=== PATIENT | female | born 2000 | race Caucasian/White ===

== ENCOUNTER 2018-11-16 08:06 | Inpatient (IN) | payer MEDICAID ==
[~2018-11-16] VITALS: Ht 160 cm; Wt 92.1 kg
[~2018-11-16 08:06] MED LIST: OXYTOCIN 20 UNITS/LR PREMIX 1,000 ML IV ONE
[2018-11-16] MEDS ORDERED: OXYTOCIN 10 UNITS/ML VIAL ONE (08:12)
[2018-11-16] MEDS ORDERED: METHYLERGONOVINE 0.2 MG/ML AMP IM PRN ×2 (08:15→08:50)
[2018-11-16] MEDS ORDERED: CARBOPROST 250 MCG/ML AMP IM PRN (08:15)
[2018-11-16] MEDS ORDERED: OXYTOCIN 10 UNITS/ML VIAL IM SCH (08:15)
[2018-11-16 08:36] VITALS: BP 118/86
[2018-11-16 08:43] LABS: BASOPHILS % (AUTO) 0.3 % (0.0-2.0); EOSINOPHILS % (AUTO) 0.4 % (0.0-4.0); LYMPHOCYTES # (AUTO) 1.6 K/uL (2.5-16.5); LYMPHOCYTES % (AUTO) 14.6 % (20.5-51.1); MEAN CORPUSCULAR HEMOGLOBIN 28 pg (27-31); MEAN CORPUSCULAR HGB CONC 33 g/dL (33-37); MEAN CORPUSCULAR VOLUME 84.6 fL (80-94); MONOCYTES # (AUTO) 0.4 K/uL (0.8-1.0); MONOCYTES % (AUTO) 3.5 % (1.7-9.3); NEUTROPHILS % (AUTO) 81.2 % (42.2-75.2); PLATELET COUNT (AUTO) 316 K/uL (140-450); RED BLOOD CELL COUNT(AUTO) 4.26 MIL/uL (4.20-5.40); RED CELL DISTRIBUTION WIDTH 16.5 % (11.6-13.7); WHITE BLOOD COUNT (AUTO) 11.1 K/uL (4.5-11.0)
[2018-11-16] MEDS ORDERED: BENZOCAINE/MENTHOL 20%-0.5% 60 GM CAN TP PRN (08:50)
[2018-11-16] MEDS ORDERED: MEASLES, MUMPS, AND RUBELLA 1 VIAL SQVAC PRN (08:50)
[2018-11-16] MEDS ORDERED: SODIUM PHOSPHATE 118 ML ENEM RC PRN (08:50)
[2018-11-16] MEDS ORDERED: TEMAZEPAM 15 MG CAP PO PRN (08:50)
--- NOTE | 2018-11-16 15:06 | NUR ---
PATIENT HAS BEEN SCREENED AND CATEGORIZED LOW NUTRITION RISK. PATIENT WILL BE SEEN WITHIN 7 DAYS OF ADMISSION. 11/22/[address]
[2018-11-16] MEDS ORDERED: DOCUSATE SOD/SENNA 50/8.6 MG 1 TAB PO SCH (21:00)
[2018-11-16] MEDS: IBUPROFEN 800 MG TAB PO PRN (21:05)
[2018-11-17 10:18] LABS: HEMATOCRIT 31.5 % (36-48); HEMOGLOBIN 10.5 g/dL (12.0-16.0)
[2018-11-17] MEDS: IBUPROFEN 800 MG TAB PO PRN (16:27)
[2018-11-18] MEDS: IBUPROFEN 800 MG TAB PO PRN (07:41)
== END 2018-11-18 15:25 | disposition home or self-care (01) | DRG 560 ==
LOC: MFCC 08:06 → EDBD 08:06 → MFCC 11:12
PROVIDERS: ADMIT Obstetrics & Gynecology; ATTEND Obstetrics & Gynecology
PROC: 10E0XZZ Delivery of Products of Conception, External Approach (ICD-10-PCS; principal; 2018-11-16)
DX: O80 Encounter for full-term uncomplicated delivery (principal); Z37.0 Single live birth; Z3A.38 38 weeks gestation of pregnancy
CPT/HCPCS: 36415; 85018; 85025; 86592; 86886; 86900; 86901; J2590; J7120

== ENCOUNTER 2019-10-13 14:19 | Emergency (ER) | payer MEDICAID, OTHER ==
[~2019-10-13] VITALS: Ht 160 cm; Wt 81.6 kg
[2019-10-13 14:32] VITALS: BP 116/46
--- NOTE | 2019-10-13 14:35 | NUR ---
URINE CUP HANDED TO PT FOR SAMPLE
--- NOTE | 2019-10-13 14:38 | NUR ---
AMBULATED TO BED 12
--- NOTE | 2019-10-13 14:45 | NUR ---
PT C/O INTERMITTENT PINCHING TYPE PAIN TO MID SUPRAPUBIC AREA/UMBILICAL REGION WITH SPOTTING TYPE VAGINAL BLEEDING X 5 DAYS. ALSO REPORTS INTERMITTENT LOWER BACK PAIN FOR 2 WEEKS AND HEMATURIA FOR 2 DAYS; ALSO NAUSEA AND LOSS OF APPETITE. DENIES INJURY OR URGENCY, FREQUENCY, BURNING SENSATION OF URINATION. DENIES FEVER, COUGH, RECENT TRAVEL OR SICK CONTACTS. NOT SEEN OB YET NO PRENETAL CARE. PATIENT STATES PAIN OF 3/10 AT THIS TIME; VSS; PATIENT POSITIONED FOR COMFORT; HOB ELEVATED; BEDRAILS UP X21; BED DOWN. ER MADE AWARE OF PT STATUS. Addendum: 10/13/19 at 1451 by MED A0, EDER UNKNOWN
[2019-10-13 15:34] LABS: BASOPHILS % (AUTO) 0.3 % (0.0-2.0); EOSINOPHILS # (AUTO) 0.1 K/uL (0-0.4); EOSINOPHILS % (AUTO) 1.8 % (0.0-4.0); HEMATOCRIT 33.7 % (36-48); HEMOGLOBIN 10.9 g/dL (12.0-16.0); LYMPHOCYTES # (AUTO) 2.2 K/uL (2.5-16.5); LYMPHOCYTES % (AUTO) 33.2 % (20.5-51.1); MEAN CORPUSCULAR HEMOGLOBIN 25 pg (27-31); MEAN CORPUSCULAR HGB CONC 33 g/dL (33-37); MEAN CORPUSCULAR VOLUME 76.8 fL (80-94); MONOCYTES # (AUTO) 0.4 K/uL (0.8-1.0); MONOCYTES % (AUTO) 6.4 % (1.7-9.3); NEUTROPHILS # (AUTO) 3.9 K/uL (1.8-7.7); NEUTROPHILS % (AUTO) 58.3 % (42.2-75.2); PLATELET COUNT (AUTO) 372 K/uL (140-450); RED BLOOD CELL COUNT(AUTO) 4.39 MIL/uL (4.20-5.40); RED CELL DISTRIBUTION WIDTH 16.7 % (11.6-13.7); WHITE BLOOD COUNT (AUTO) 6.7 K/uL (4.8-10.8)
[2019-10-13 15:40] LABS: APPEARANCE,URINE CLEAR (CLEAR); BILIRUBIN,URINE NEGATIVE (NEGATIVE); BLOOD, URINE TRACE-I (NEGATIVE); COLOR,URINE YELLOW (YELLOW); LEUKOCYTE ESTERASE ,URINE NEGATIVE (NEGATIVE); NITRITE, URINE POSITIVE (NEGATIVE); PH,URINE 6.5 (5.0-9.0); UGLUCOSE NEGATIVE (NEGATIVE)
--- NOTE | 2019-10-13 16:00 | NUR ---
PT IS RESTING IN THE BED.
[2019-10-13 16:01] LABS: RBC,URINE 0-5 /HPF (0-5); WBC,URINE NONE SEEN /HPF (0-5)
[2019-10-13] MEDS ORDERED: NITROFURANTOIN 100 MG CAP PO ONE (16:15)
--- NOTE | 2019-10-13 17:00 | NUR ---
PT AMBULATED TO BATHROOM WITH STEADY GAIT.
[2019-10-13 17:51] VITALS: BP 128/65
== END 2019-10-13 17:52 | disposition home or self-care (01) ==
LOC: MED 14:19
DX: O20.0 Threatened abortion (principal); O23.41 Unspecified infection of urinary tract in pregnancy, first trimester; O99.011 Anemia complicating pregnancy, first trimester; Z3A.01 Less than 8 weeks gestation of pregnancy
CPT/HCPCS: 36415; 76817; 81001; 81025; 84702; 85025; 86900; 86901; 87086; 99284; Q0092

== ENCOUNTER 2019-10-16 10:45 | Emergency (ER) | payer OTHER ==
[~2019-10-16] VITALS: Ht 162.6 cm; Wt 85.3 kg
[2019-10-16 10:48] VITALS: BP 119/58
--- NOTE | 2019-10-16 10:55 | NUR ---
Patient ambulated to bed 12. RN evaluating patient at bedside.
--- NOTE | 2019-10-16 10:56 | NUR ---
Pt ambulated to restroom to provide urine sample
--- NOTE | 2019-10-16 11:15 | NUR ---
19 Y/O F C/C VAGINAL BLEEDING X 6 DAYS. PT FURTHER COMPLAINTS OF LOWER ABDONIMAL PAIN, CRAMPING, NONRADIATING, 02/09. BLEEDING HAS GOTTEN WORSE WITH BLOOD CLOTS BIG A "SMALL ROCK" PER PT. PT BEING USING TWO PADS/DAY. WAS SEEN IN [facility] PAST MONDAY FOR SAME C/C, GIVEN ABX, PT COMPLIANT WITH RX. PT ON THIRD WITH UNKNOWN DUE DATE, TWO PREVIOUS PREGNANCIES TWO CHILD ALIVE. PT NKA. NO RX. NO HX. NO SX. NO N/V/D. SIDE RAIL X1.
--- NOTE | 2019-10-16 11:20 | NUR ---
Ultrasound at bedside
[2019-10-16 11:23] LABS: BASOPHILS % (AUTO) 0.1 % (0.0-2.0); EOSINOPHILS # (AUTO) 0.1 K/uL (0-0.4); EOSINOPHILS % (AUTO) 1.9 % (0.0-4.0); HEMATOCRIT 35.6 % (36-48); HEMOGLOBIN 11.5 g/dL (12.0-16.0); LYMPHOCYTES # (AUTO) 2.2 K/uL (2.5-16.5); LYMPHOCYTES % (AUTO) 33.8 % (20.5-51.1); MEAN CORPUSCULAR HEMOGLOBIN 25 pg (27-31); MEAN CORPUSCULAR HGB CONC 32 g/dL (33-37); MEAN CORPUSCULAR VOLUME 76.8 fL (80-94); MONOCYTES # (AUTO) 0.4 K/uL (0.8-1.0); MONOCYTES % (AUTO) 6.4 % (1.7-9.3); NEUTROPHILS # (AUTO) 3.8 K/uL (1.8-7.7); NEUTROPHILS % (AUTO) 57.8 % (42.2-75.2); PLATELET COUNT (AUTO) 327 K/uL (140-450); RED BLOOD CELL COUNT(AUTO) 4.63 MIL/uL (4.20-5.40); RED CELL DISTRIBUTION WIDTH 16.6 % (11.6-13.7); WHITE BLOOD COUNT (AUTO) 6.6 K/uL (4.8-10.8)
[2019-10-16 13:16] VITALS: BP 122/58
--- NOTE | 2019-10-16 13:16 | NUR ---
Patient discharged with v/s stable. Written and verbal after care instructions given and explained. Patient verbalized understanding. Ambulatory with steady gait. All questions addressed prior to discharge. Advised to follow up with PMD or MD [place].
== END 2019-10-16 13:16 | disposition home or self-care (01) ==
LOC: MED 10:45
DX: O20.0 Threatened abortion (principal); Z3A.01 Less than 8 weeks gestation of pregnancy
CPT/HCPCS: 36415; 76817; 84702; 85025; 99284; Q0092

== ENCOUNTER 2020-05-02 23:40 | Emergency (ER) | payer OTHER ==
[~2020-05-02] VITALS: Ht 160 cm; Wt 84.8 kg
[2020-05-02 23:48] VITALS: BP 137/78
--- NOTE | 2020-05-02 23:53 | NUR ---
PT AMBULATED TO BED 02 STEADY GAIT
--- NOTE | 2020-05-02 23:55 | NUR ---
19 Y/O FEMALE C/O L EYE PAIN X1 MONTH. PT STATES 5/10 ITCHING PAIN. PT STATES IT "GETS RED WHEN I ITCH IT" AND "FEELS SWOLLEN". SKIN WARM AND DRY. SELLING NOTED TO LT EYE, NO REDNESS NOTED. DENIES ANY DISCHARGE. VSS. MEDHX: KADEEM CHANG
--- NOTE | 2020-05-02 23:55 | NUR ---
ERMD AT BEDSIDE EVALAUTING PT
[2020-05-03 00:04] VITALS: BP 137/78
--- NOTE | 2020-05-03 00:04 | NUR ---
Patient discharged with v/s stable. Written and verbal after care instructions given and explained. Patient alert, oriented and verbalized understanding of instructions. Ambulatory with steady gait. All questions addressed prior to discharge. ID band removed. Patient advised to follow up with PMD. Rx of BENADRYL given. Patient educated on indication of medication including possible reaction and side effects. Opportunity to ask questions provided and answered.
== END 2020-05-03 00:04 | disposition home or self-care (01) ==
LOC: MED 23:40
DX: H01.116 Allergic dermatitis of left eye, unspecified eyelid (principal); E11.9 Type 2 diabetes mellitus without complications
CPT/HCPCS: 99282

== ENCOUNTER 2020-07-12 18:10 | Emergency (ER) | payer OTHER ==
[~2020-07-12] VITALS: Ht 162.6 cm; Wt 90.7 kg
[2020-07-12 19:45] VITALS: BP 138/65
--- NOTE | 2020-07-12 19:45 | NUR ---
TO TENT AMBULATORY
--- NOTE | 2020-07-12 20:10 | NUR ---
SEEN AND EXAMINED BY SHELBIE WITH ORDERS, CARRIED OUT
[2020-07-12] MEDS ORDERED: AZITHROMYCIN 250 MG TAB PO ONE (20:15)
[2020-07-12] MEDS ORDERED: DEXAMETHASONE 4 MG/ML VIAL IM ONE (20:15)
[2020-07-12] MEDS ORDERED: ALBUTEROL HFA MDI 90 MCG/ACTUATION 8 GM INH ONE ×2 (20:15)
--- NOTE | 2020-07-12 21:00 | NUR ---
MEDICATED PER ERMDS ORDER, TOLERATED WELL.
--- NOTE | 2020-07-12 21:05 | NUR ---
SWABS DONE AND SENT TO LAB
[2020-07-12 22:50] VITALS: BP 118/76
--- NOTE | 2020-07-12 22:50 | NUR ---
Patient discharged with v/s stable. Written and verbal after care instructions given and explained. Patient alert, oriented and verbalized understanding of instructions. Ambulatory with steady gait. All questions addressed prior to discharge. ID band removed. Patient advised to follow up with PMD. Rx of VENTOLIN,PREDNISONE,AZITHROMYCIN given. Patient educated on indication of medication including possible reaction and side effects. Opportunity to ask questions provided and answered.
== END 2020-07-12 22:50 | disposition home or self-care (01) ==
LOC: MED 18:10
DX: J06.9 Acute upper respiratory infection, unspecified (principal); Z20.828 Contact with and (suspected) exposure to other viral communicable diseases; E11.9 Type 2 diabetes mellitus without complications
CPT/HCPCS: 71045; 87804; 96372; 99284; J1100; J3535; U0003

== ENCOUNTER 2020-12-17 19:22 | Emergency (ER) | payer OTHER ==
[~2020-12-17] VITALS: Ht 162.6 cm; Wt 88.0 kg
[2020-12-17 19:29] VITALS: BP 113/60
--- NOTE | 2020-12-17 19:29 | NUR ---
TO BED AMBULATORY
--- NOTE | 2020-12-17 19:35 | NUR ---
PT. UNABLE TO GIVE URINE AT THIS TIME.
--- NOTE | 2020-12-17 19:40 | NUR ---
PT. IS A 20 Y/O FEMALE THAT CAME INTO ED WITH C/O OF VAGINAL BLEEDING. PT. STATES THAT IT STARTED A WEEK AGO AND THAT "IT LOOKS LIKE SPOTTING." SHE ALSO STATES THAT SHE HAS LOWER ABDOMINAL PAIN AND RATES IT AT A 5/10 ON THE PAIN SCALE. DENIES N/D; SKIN IS PINK/WARM/DRY; AAOX4 WITH EVEN AND STEADY GAIT; VSS; PATIENT POSITIONED FOR COMFORT; HOB ELEVATED; BEDRAILS UP X2; BED DOWN. PETER YOUNG MADE AWARE OF PT STATUS. Addendum: [facility]20 [facility] .
--- NOTE | 2020-12-17 20:00 | NUR ---
ULTRASOUND AT BEDSIDE.
[2020-12-17 20:03] LABS: BASOPHILS # (AUTO) 0.1 K/uL (0.00-0.22); EOSINOPHILS # (AUTO) 0.1 K/uL (0-0.4); EOSINOPHILS % (AUTO) 1.6 % (0.0-4.0); HEMATOCRIT 33.4 % (36-48); HEMOGLOBIN 11.2 g/dL (12.0-16.0); MEAN CORPUSCULAR HEMOGLOBIN 28 pg (27-31); MEAN CORPUSCULAR HGB CONC 34 g/dL (33-37); MEAN CORPUSCULAR VOLUME 82.5 fL (80-94); MONOCYTES # (AUTO) 0.4 K/uL (0.8-1.0); MONOCYTES % (AUTO) 4.1 % (1.7-9.3); NEUTROPHILS # (AUTO) 6.1 K/uL (1.8-7.7); NEUTROPHILS % (AUTO) 70.3 % (42.2-75.2); PLATELET COUNT (AUTO) 353 K/uL (140-450); RED BLOOD CELL COUNT(AUTO) 4.05 MIL/uL (4.20-5.40); WHITE BLOOD COUNT (AUTO) 8.6 K/uL (4.8-10.8)
--- NOTE | 2020-12-17 20:22 | NUR ---
Dr. Thurman examining patient.
[2020-12-17 20:56] VITALS: BP 113/60
--- NOTE | 2020-12-17 20:56 | NUR ---
Patient discharged with v/s stable. Written and verbal after care instructions given and explained. Patient verbalized understanding. Ambulatory with steady gait. All questions addressed prior to discharge. Advised to follow up with PMD.
[2020-12-17 21:20] LABS: APPEARANCE,URINE CLEAR (CLEAR); BILIRUBIN,URINE NEGATIVE (NEGATIVE); BLOOD, URINE TRACE-I (NEGATIVE); COLOR,URINE YELLOW (YELLOW); LEUKOCYTE ESTERASE ,URINE NEGATIVE (NEGATIVE); NITRITE, URINE NEGATIVE (NEGATIVE); PH,URINE 6.5 (5.0-9.0); UGLUCOSE NEGATIVE (NEGATIVE)
[2020-12-17 21:38] LABS: RBC,URINE 0-5 /HPF (0-5)
[2020-12-17 21:39] LABS: WBC,URINE 0-5 /HPF (0-5)
== END 2020-12-17 20:56 | disposition home or self-care (01) ==
LOC: MED 19:22
DX: O20.0 Threatened abortion (principal); E11.9 Type 2 diabetes mellitus without complications; Z3A.01 Less than 8 weeks gestation of pregnancy
CPT/HCPCS: 36415; 76817; 81001; 84702; 85025; 99284

== ENCOUNTER 2020-12-18 20:21 | Emergency (ER) | payer OTHER ==
[~2020-12-18] VITALS: Ht 162.6 cm; Wt 88.0 kg
[2020-12-18 20:27] VITALS: BP 110/62
[2020-12-18 21:05] LABS: EOSINOPHILS # (AUTO) 0.1 K/uL (0-0.4); EOSINOPHILS % (AUTO) 1.6 % (0.0-4.0); HEMATOCRIT 34.8 % (36-48); HEMOGLOBIN 11.6 g/dL (12.0-16.0); MEAN CORPUSCULAR HEMOGLOBIN 28 pg (27-31); MEAN CORPUSCULAR HGB CONC 33 g/dL (33-37); MONOCYTES # (AUTO) 0.4 K/uL (0.8-1.0)
[2020-12-18 21:13] LABS: BASOPHILS % (AUTO) 0.4 % (0.0-2.0); LYMPHOCYTES % (AUTO) 22.2 % (20.5-51.1); MEAN CORPUSCULAR VOLUME 83.2 fL (80-94); MONOCYTES % (AUTO) 4.3 % (1.7-9.3); NEUTROPHILS # (AUTO) 6.3 K/uL (1.8-7.7); NEUTROPHILS % (AUTO) 71.5 % (42.2-75.2); PLATELET COUNT (AUTO) 380 K/uL (140-450); RED BLOOD CELL COUNT(AUTO) 4.18 MIL/uL (4.20-5.40); WHITE BLOOD COUNT (AUTO) 8.9 K/uL (4.8-10.8)
[2020-12-18 22:20] VITALS: BP 103/65
== END 2020-12-18 22:20 | disposition home or self-care (01) ==
LOC: MED 20:21
DX: O20.0 Threatened abortion (principal); E11.9 Type 2 diabetes mellitus without complications; Z3A.08 8 weeks gestation of pregnancy
CPT/HCPCS: 36415; 84702; 85025; 99281; 99283

== ENCOUNTER 2021-05-28 07:55 | Observation (INO) | payer OTHER ==
[~2021-05-28] VITALS: Ht 165.1 cm; Wt 90.7 kg
[2021-05-28 08:54] VITALS: BP 113/56
== END 2021-05-28 09:26 | disposition home or self-care (01) ==
LOC: MLD 07:55
PROVIDERS: ADMIT Obstetrics & Gynecology; ATTEND Obstetrics & Gynecology
DX: O99.891 Other specified diseases and conditions complicating pregnancy (principal); M54.9 Dorsalgia, unspecified; O46.93 Antepartum hemorrhage, unspecified, third trimester; O34.63 Maternal care for abnormality of vagina, third trimester; N89.8 Other specified noninflammatory disorders of vagina; Z3A.30 30 weeks gestation of pregnancy
CPT/HCPCS: 59025; 76817; G0378; Q0092; 81000

== ENCOUNTER 2021-06-10 07:40 | Observation (INO) | payer OTHER ==
[~2021-06-10] VITALS: Ht 162.6 cm; Wt 90.7 kg
[2021-06-10] MEDS ORDERED: FOLI2000 PO (08:17)
[2021-06-10] MEDS ORDERED: FERR-212 PO (08:17)
[2021-06-10] MEDS ORDERED: PNV91TAB8 PO (08:17)
[2021-06-10 08:18] VITALS: BP 118/54
--- NOTE | 2021-06-10 08:35 | NUR ---
Patient unable to urinate. Addendum: 06/10/21 at 0837 by Bridget Goodwin RN Amended: Links added.
== END 2021-06-10 08:55 | disposition home or self-care (01) ==
LOC: MLD 07:40
PROVIDERS: ADMIT Obstetrics & Gynecology; ATTEND Obstetrics & Gynecology
DX: O99.613 Diseases of the digestive system complicating pregnancy, third trimester (principal); K59.00 Constipation, unspecified; O99.891 Other specified diseases and conditions complicating pregnancy; M54.9 Dorsalgia, unspecified; Z3A.32 32 weeks gestation of pregnancy
CPT/HCPCS: 59025; G0378

== ENCOUNTER 2022-03-07 01:35 | Emergency (ER) | payer OTHER ==
[~2022-03-07] VITALS: Ht 160 cm; Wt 90.7 kg
[~2022-03-07 01:35] MED LIST changes: +FERR-212 PO; +FOLI2000 PO; -OXYTOCIN 20 UNITS/LR PREMIX 1,000 ML IV ONE; +PNV91TAB8 PO
[2022-03-07 02:01] VITALS: BP 134/78
[2022-03-07] MEDS ORDERED: CIPR7.5S OT (02:28)
[2022-03-07] MEDS ORDERED: IBUP-1878 PO (02:29)
[2022-03-07 03:35] VITALS: BP 134/78
--- NOTE | 2022-03-07 03:35 | NUR ---
Patient discharged with v/s stable. Written and verbal after care instructions given and explained. Patient alert, oriented and verbalized understanding of instructions. Ambulatory with steady gait. All questions addressed prior to discharge. ID band removed. Patient advised to follow up with PMD. Rx of MOTRIN, CIPRO OTIC given. Patient educated on indication of medication including possible reaction and side effects. Opportunity to ask questions provided and answered.
== END 2022-03-07 03:35 | disposition home or self-care (01) ==
LOC: MED 01:35
DX: H60.92 Unspecified otitis externa, left ear (principal); E11.9 Type 2 diabetes mellitus without complications; Z79.899 Other long term (current) drug therapy
CPT/HCPCS: 99283

== ENCOUNTER 2022-06-15 20:39 | Emergency (ER) | payer OTHER ==
[~2022-06-15] VITALS: Ht 157.5 cm; Wt 93.0 kg
[~2022-06-15 20:39] MED LIST changes: +CIPR7.5S OT; +IBUP-1878 PO
[2022-06-15 20:47] VITALS: BP 124/71
[2022-06-15] MEDS ORDERED: AMOX500C25 PO (21:05)
[2022-06-15] MEDS: AMOXICILLIN 500 MG CAP PO ONE (21:38)
[2022-06-15 21:42] VITALS: BP 122/84
== END 2022-06-15 21:42 | disposition home or self-care (01) ==
LOC: MED 20:39
DX: J02.9 Acute pharyngitis, unspecified (principal); E11.9 Type 2 diabetes mellitus without complications; Z79.899 Other long term (current) drug therapy
CPT/HCPCS: 99283

== ENCOUNTER 2022-07-21 22:09 | Emergency (ER) | payer OTHER ==
[~2022-07-21] VITALS: Ht 160 cm; Wt 86.2 kg
[~2022-07-21 22:09] MED LIST changes: +AMOX500C25 PO
[2022-07-21 22:21] VITALS: BP 96/57
--- NOTE | 2022-07-21 23:17 | NUR ---
PT TO BED 02
[2022-07-21] MEDS ORDERED: IBUP-2213 PO (23:34)
[2022-07-21] MEDS ORDERED: COROTSOL LEFT EAR (23:34)
[2022-07-21 23:44] VITALS: BP 96/57
--- NOTE | 2022-07-21 23:46 | NUR ---
Patient discharged with v/s stable. Written and verbal after care instructions given and explained. Patient alert, oriented and verbalized understanding of instructions. Ambulatory with steady gait. All questions addressed prior to discharge. ID band removed. Patient advised to follow up with PMD. Rx of CORTICOSPORIN, IBUPROFEN given. Patient educated on indication of medication including possible reaction and side effects. Opportunity to ask questions provided and answered.
== END 2022-07-21 23:41 | disposition home or self-care (01) ==
LOC: MED 22:09
DX: H60.91 Unspecified otitis externa, right ear (principal); Z79.899 Other long term (current) drug therapy
CPT/HCPCS: 99283

== ENCOUNTER 2023-12-16 23:50 | Emergency (ER) | payer SELFPAY ==
[~2023-12-16] VITALS: Ht 160 cm; Wt 90.7 kg
[~2023-12-16 23:50] MED LIST changes: +COROTSOL LEFT EAR; +IBUP-2213 PO
[2023-12-17 00:11] VITALS: BP 123/69; PULSE 88; RESP 16; TEMP 97.2; O2SAT 100
[2023-12-17] MEDS ORDERED: AMOX-1230 PO (01:17)
[2023-12-17 01:20] VITALS: BP 123/69; PULSE 88; RESP 16; TEMP 97.2; O2SAT 100
== END 2023-12-17 01:20 | disposition home or self-care (01) ==
LOC: MED 23:50
DX: H66.93 Otitis media, unspecified, bilateral (principal); Z79.899 Other long term (current) drug therapy
CPT/HCPCS: 99283